=== PATIENT | female | born 1975 | race Caucasian/White ===

== ENCOUNTER 2020-05-26 23:35 | Emergency (ER) | payer MEDICARE, MEDICAID, SELFPAY ==
--- NOTE | ~2020-05-26 | XR_ITS ---
EXAMINATION: XR hand RT min 3V DATE: 05/27/2020 00:02 INDICATION: Possible foreign body at the right index finger TECHNIQUE: Posteroanterior, oblique and lateral views of the right hand were obtained. COMPARISON: None. FINDINGS: Bone alignment is normal. No fracture. Joint spaces are normal. No radiopaque foreign bodies. There i s a somewhat pointed contour to the volar margin of one of the condyles at the head of the second mid dle phalanx which is of indeterminate etiology of doubtful significance but which could potentially a ccount for a palpable abnormality. IMPRESSION: 1. No radiopaque foreign bodies or acute osseous abnormality. Reviewed, dictated and finalized at location A. [employer]
--- NOTE | 2020-05-26 23:52 | ED_ITS ---
HPI - Skin/Abscess/Foreign Bdy General Chief complaint: Skin/Abscess/Foreign Body Stated complaint: 44 YO female w/ 2 week h.o possible FB in right index finger. Denies trauma or injury. Admits she has been picking at affected finger for 2 weeks but sensation hasn't gone away. Related Data Allergies Allergy/AdvReac Type Severity Reaction Status Date / Time No Known Allergies Allergy Unverified 11/30/14 07:16 Review of Systems Review of Systems: All systems reviewed & are unremarkable except as noted in HPI and below Cardiovascular: Cardiovascular: Reports no additional cardiovascular complaints Respiratory: Respiratory: Reports no additional respiratory complaints Gastrointestinal: Gastrointestinal: Reports no additional gastrointestinal complaints Integumentary/Breasts: Skin/Breast: Reports system reviewed and no additional complaints, except as docu Comments: Possible FB in right index finger Neurologic: Reports system reviewed and no additional complaints, except as documented Exam Const: General: healthy appearing and no acute distress Orientation/consciousness: patient oriented x3 Chest: Chest palpation & inspection: normal inspection of the chest and abnormal inspection of the chest Resp: Effort & Inspection: normal respiratory effort Auscultation: clear to auscultation bilaterally Cardio: Rate: regular rate Rhythm: regular rhythm Skin: Wounds: wounds noted (Multiple superficial puncture wounds, No FB identifies, with ENT magnifier.) Neuro: General: patient oriented x3, moves all extremities, no meningeal signs, no focal motor deficits and CN's II-XI intact bilaterally Cranial nerves: Yes Nystagmus not present Speech: normal speech Gait exam (Neuro): Normal gait present Extrem: General: normal to inspection Psych: Appearance: grossly normal Mental Status: mental status grossly normal Affect: normal affect Attitude: cooperative MDM - Skin/Abscess/Foreign Bdy Differential Diagnosis Differential diagnosis: Likely other (FB in index finger) Medical Records Attestation: I reviewed the patient's medical records. Imaging Data Attestation: I personally reviewed and interpreted this imaging study as follows: My impression: NO FB visualized Critical Care Time Critical Care Time Critical Care Time: No Discharge Plan Discharge Clinical Impression: Cellulitis Qualifiers: Site of cellulitis: extremity Site of cellulitis of extremity: finger Lateralit y: right Qualified Code(s): L03.011 - Cellulitis of right finger Patient Disposition: Home, Self-Care Condition: Stable Instructions: Antibiotic Form Additional Instructions: F/U with PMD in 3-5 days Prescriptions: New cephalexin [Keflex] 500 mg capsule 500 mg PO Q8H Qty: 21 RF: 0 Follow-up/Referrals: UNKNOWN,DOCTOR [Primary Care Provider] - Time of Disposition: 00:37
[2020-05-26 23:57] VITALS: BP 122/67; PULSE 83; RESP 18; TEMP 36.7; O2SAT 98
[2020-05-27 00:46] VITALS: BP 120/60; PULSE 80; RESP 18; O2SAT 98
== END 2020-05-27 00:54 | disposition home or self-care (01) ==
PROVIDERS: Emergency Provider Family Medicine
DX: L03.011 Cellulitis of right finger (principal)
CPT/HCPCS: 73130; 99283

== ENCOUNTER 2023-12-14 20:02 | Emergency (ER) | payer MEDICARE, MEDICAID, SELFPAY ==
--- NOTE | ~2023-12-14 | CT_ITS ---
CT abdomen pelvis w con Ordering provider: Tavia Lui MD History: 47 years Female with . chronci diarrhea; hx surgery with transvaginal mes . Comparison: December 21, 2011 Technique: CT abdomen and pelvis with IV and without oral contrast. Automated exposure control and it erative reconstruction technique were employed. The dose-length product was 250.96 mGy-cm. 100 mL Omn ipaque 350 was given IV. Findings: VISUALIZED LOWER CHEST: Normal. UPPER ABDOMINAL ORGANS: Liver: Normal. Gallbladder: Normal. Spleen: Normal. Stomach/duodenum: Normal. Pancreas: Normal. Adrenals: Bilateral adrenal masses the right measures 2 x 3.4 cm. The left measures 2.8 x 2.4 cm. Kidneys: Normal. PELVIC ORGANS: The bladder thickened wall. BOWEL AND MESENTERY: Colon: No evidence of diverticulitis. Normal appendix. Small Bowel: Normal. No obstruction. Peritoneum/mesentery: No free air or free fluid. No mesenteric lymphadenopathy. RETROPERITONEUM: Mild atherosclerotic changes of aorta. No retroperitoneal lymphadenopathy. MUSCULOSKELETAL: Superficial soft tissues: The superficial soft tissues are normal. Bones: Age appropriate degenerative changes of the spine. IMPRESSION: 1. No evidence of appendicitis, diverticulitis or intestinal obstruction. 2. Thickened wall of the urinary bladder which may indicate cystitis. Clinical evaluation advised. 3. Bilateral adrenal masses which are slightly larger than the previous study. Follow-up advised. Reviewed, dictated and finalized at location A.
[2023-12-14 20:05] VITALS: BP 111/79; PULSE 95; RESP 16; TEMP 36.8; O2SAT 100
[2023-12-14 20:37] LABS: Basophils Percent Auto 0.3 % (0.2-1.2); Eosinophils Absolute Auto 0.2 K/mm3 (0-0.3); Eosinophils Percent Auto 1.5 % (0-4.4); Hematocrit 41.1 % (37.0-47.0); Hemoglobin 13.8 g/dL (12.0-15.0); Immature Granulocyte Absolute 0.03 K/mm3 (0.00-0.031); Immature Granulocyte Percent A 0.3 % (0-0.5); Lymphocytes Absolute Auto 4.79 K/mm3 (0.9-3.2); Lymphocytes Percent Auto 41.5 % (18.3-44.2); Mean Corpuscular HGB Conc 33.6 g/dl (32-36); Mean Corpuscular Hemoglobin 30.7 pg (26-34); Mean Corpuscular Volume 91.3 fl (80-100); Mean Platelet Volume 9.8 fl (7.4-10.4); Monocytes Absolute Auto 0.6 K/mm3 (0.1-0.6); Monocytes Percent Auto 5.2 % (2.6-8.5); Neutrophils Absolute Auto 5.9 K/mm3 (1.3-6.7); Neutrophils Percent Auto 51.2 % (45.5-73.1); Platelet Count Result 280 k/mm3 (150-375); Red Cell Distribution Width 13.9 % (11.5-14.5); White Blood Count 11.6 K/mm3 (4.5-10.0)
[2023-12-14 20:47] LABS: Alanine Aminotransferase 20 U/L (6-35); Alkaline Phosphatase 90 U/L (38-126); Anion Gap 6 mmol/L (4-12); Aspartate Amino Transferase 22 U/L (14-36); Bilirubin,Total 0.4 mg/dL (0.2-1.3); Blood Urea Nitrogen 10 mg/dL (7-17); Carbon Dioxide 27 mmol/L (22-30); Chloride 106 mmol/L (98-107); Estimated CRCL calculation 91 ml/min; Estimated Glomerular Filt Rate > 60; Glucose 78 mg/dL (65-110); Lipase 30 U/L (23-300); Potassium 3.9 mmol/L (3.4-5.0); Sodium 139 mmol/L (137-145)
[2023-12-14 22:21] LABS: Appearance Urine Clear (Clear); Bacteria Urine 4+ /hpf; Bilirubin Urine Negative (Negative); Blood Urine Negative (Negative); Color Urine Yellow (Yellow); Glucose Urine UA Negative (Negative); Ketones Urine Negative (Negative); Leukocyte Esterase Ur Trace LEU/UL (Negative); Nitrate Urine Positive (Negative); Non Pathogenic Casts 0-2; Protein Urine Negative (Negative); RBC Urine 0-2 /hpf (0-2); Specific Grav Ur 1.016 (1.001-1.035); Squamous Epithelial Cell Urine None Seen /hpf (Few); Urobilinogen Urine 0.2 mg/dL (<2.0); WBC Urine 0-5 /hpf (0-3)
--- NOTE | 2023-12-14 22:31 | ED.NAVMDI ---
HPI - Nausea/Vomiting/Diarrhea General Chief complaint: Nausea/Vomiting/Diarrhea Stated complaint: diarrhea Time Seen by Provider: 12/14/23 22:06 Source: patient and family (daughter) Mode of arrival: ambulatory Limitations: no limitations History of Present Illness HPI Narrative: Patient presents with diarrhea. She does note that ever since she had degenerative disc disease and herniated disc/bulging disc surgery with transvaginal mesh placed (2009), she has had GI/ issues. She has to self cath for urine and has chronically had loose/soft stool. No nausea/vomiting. Associated with abdominal pain described as cramping. No fevers. Does not know if she has seen a GI specialist , does not believe she has had a colonoscopy. Since evening the stooling has been nearly constant such that she has been incontinent of stool. Had been on 2 antibiotics but last dose was November 18. Her stool has been various colors including green most recently. Also notes some blood on the toilet tissue which she had attributed to how raw it is plus hemorrhoids. Does not have a primary care provider. Her urine has been dark recently. Related Data Allergies Allergy/AdvReac Type Severity Reaction Status Date / Time No Known Allergies Allergy Unverified 12/14/23 20:14 [facility] Past Medical History Medical History (Updated 12/16/23 @ 19:23 by Tavia Lui MD) Degenerative disc disease Exposure of implanted vaginal mesh Social History Social History (Updated 12/16/23 @ 19:24 by Tavia Lui MD) Social History: Has a daughter Exam Narrative: GENERAL: Well-appearing, well-nourished, and in no acute distress. HEAD: Normocephalic, atraumatic. EYES: Non injected, non icteric ENT: Nares clear, no rhinorrhea or epistaxis. NECK: Supple. CHEST: Speaking in full sentences. No respiratory distress. HEART: Regular rate and rhythm. . ABDOMEN/GI: Soft, nondistended. DIANA performed; green stool present in collection canister and on gloved finger. Multiple non thrombosed hemorrhoids. FOBT/guiaic is faintly positive at the periphery in one field but not the other. . EXTREMITIES: Normal range of motion. No edema. SKIN: Warm, dry, no rash. NEURO: No focal deficits. Alert and oriented x3. PSYCH: Normal mood and affect. Course Vital Signs Vital signs: Vital Signs Temperature 98.3 F 12/14/23 20:05 Pulse Rate 95 12/14/23 20:05 Respiratory Rate 16 12/14/23 20:05 Blood Pressure 111/79 12/14/23 20:05 Pulse Oximetry 100 12/14/23 20:05 Oxygen Delivery Room Air 12/14/23 20:05 Temperature 98.3 F 12/14/23 20:05 Pulse Rate 81 12/15/23 02:11 Respiratory Rate 16 12/15/23 02:11 Blood Pressure 127/78 12/15/23 02:11 Pulse Oximetry 98 12/15/23 02:11 Oxygen Delivery Room Air 12/14/23 20:05 MDM - Nausea/Vomiting/Diarrhea MDM Narrative Medical decision making narrative: Patient presents with complaint of diarrhea, acutely worsening but with chronic diarrhea for over a decade. Denies prior GI ; does not believe she has had a colonoscopy. In the ED she is afebrile with VS within normal limits. Her magnesium is low/normal; will replete. My differential diagnosis for chronic diarrhea includes, but not limited to: Infectious (giardia, E histolytica, C difficile), medications (antibiotics, antacids, lactulose, sorbitol, chemotherapy, colchicine, gold), inflammatory etiology (such as IBD, radiation enteritis, ischemic colitis, diverticulitis). Also possible are malabsorption issues due to bile salt deficiency (cirrhosis, cholestasis, ileal disease, bacterial overgrowth), pancreatic insufficiency, mucosal abnormalities (celiac sprue, tropical sprue, Whipple disease), or lactose intolerance. They are also secretory causes such as hormonal (VIP, carcinoid tumor, Zolinger Fragoso, glucagon,), laxative abuse, neoplasm; finally motility issues may be the cause (IBS, scleroderma, diabetic autonomic neuropathy).
[2023-12-14 22:32] LABS: Add Urine Microscopic? YES
[2023-12-14 22:39] LABS: Pregnancy On Board Control Positive; Urine Pregnancy Test Negative
[2023-12-14 22:43] LABS: Magnesium 1.6 mg/dL (1.6-2.3)
[2023-12-14 23:19] LABS: Influenza A QL RT-PCR Negative (Negative); Influenza B QL RT-PCR Negative (Negative); SARS-CoV-2 RNA PCR Negative (Negative)
[2023-12-14] MEDS: HYDROcodone/acetaminophen (*CRX) 5-325 MG TABLET 1 TAB PO (23:46)
[2023-12-14] MEDS: MAGNESIUM SULF 1 GM/D5W 100 ML 1 GM/100 ML BAG IVPB (23:46)
[2023-12-15 00:08] LABS: Toxigenic C. Diff NEGATIVE (NEGATIVE)
[2023-12-15] MEDS: MORPHINE SULFATE (*CRX) 4 MG/ML INJ IV PUSH (01:22)
[2023-12-15 02:11] VITALS: BP 127/78; PULSE 81; RESP 16; O2SAT 98
== END 2023-12-15 02:12 | disposition home or self-care (01) ==
PROVIDERS: Emergency Provider Student in an Organized Health Care Education/Training Program
DX: K52.9 Noninfective gastroenteritis and colitis, unspecified (principal); D72.829 Elevated white blood cell count, unspecified; N30.90 Cystitis, unspecified without hematuria; E27.8 Other specified disorders of adrenal gland; K64.4 Residual hemorrhoidal skin tags; Z20.822 Contact with and (suspected) exposure to COVID-19
CPT/HCPCS: 36415; 74177; 80053; 81001; 81025; 83690; 83735; 85025; 87045; 87427; 87449; 87493; 87636; 89055; 96365; 96367; 96375; 99284; A9270; J0696; J2270; J3475; Q9967

== ENCOUNTER 2023-12-23 22:09 | Emergency (ER) | payer MEDICARE, MEDICAID, SELFPAY ==
--- NOTE | ~2023-12-23 | XR_ITS ---
Left Knee Technique: AP, lateral, and sunrise views were obtained. Clinical History: Swelling Findings: No fracture or dislocation is seen. Osseous alignment is anatomic. Joint spaces are preserv ed without degenerative or erosive change. Soft tissues are unremarkable. No joint effusion is seen. Impression: Unremarkable left knee radiographs. Reviewed, dictated and finalized at location . Impression: Unremarkable left knee radiographs.
[2023-12-23 22:14] VITALS: BP 118/56; PULSE 100; RESP 16; TEMP 36.6; O2SAT 98
[2023-12-23 23:14] VITALS: BP 109/73; PULSE 97; RESP 16; O2SAT 98
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
[2023-12-24] MEDS: DOXYCYCLINE HYCLATE 100 MG TABLET PO (00:10)
[2023-12-24] MEDS: KETOROLAC (*BKC) 60 MG/2 ML VIAL IM (00:10)
== END 2023-12-24 00:38 | disposition home or self-care (01) ==
PROVIDERS: Emergency Provider Physician Assistant; PCP Family Medicine
DX: S86.912A Strain of unspecified muscle(s) and tendon(s) at lower leg level, left leg, initial encounter (principal); L03.116 Cellulitis of left lower limb; S60.512A Abrasion of left hand, initial encounter; S60.511A Abrasion of right hand, initial encounter; S80.212A Abrasion, left knee, initial encounter; V18.4XXA Pedal cycle driver injured in noncollision transport accident in traffic accident, initial encounter
CPT/HCPCS: 73564; 96372; 99283; A9270; J1885